=== PATIENT | female | born 1950 | race American Indian/Alaskan Native ===

== ENCOUNTER 2016-08-09 17:41 | Emergency (ER) | payer MEDICARE ==
[2016-08-09 18:11] LABS: Hemoglobin 12.3 gm/dl (10.1-14.3); Mean Corpuscular HGB Conc 32 % (30-34); Mean Corpuscular Volume 71 fl (79-97); Platelet Count 243 K/mm3 (140-440); Red Blood Count 5.53 M/mm3 (3.65-5.03); Red Cell Distribution Width 16.2 % (13.2-15.2)
[2016-08-09 18:20] LABS: Mean Corpuscular Hemoglobin 22 pg (28-32)
[2016-08-09 18:32] LABS: BUN/Creatinine Ratio 11.81; Calcium 9.6 mg/dL (8.4-10.2); Chloride 96.6 mmol/L (98-107); Potassium 4.1 mmol/L (3.6-5.0)
[2016-08-09 19:50] LABS: Bilirubin,Urine NEG (Negative); Blood,Urine NEG (Negative); Ketones,Urine NEG (Negative); Leukocyte Esterase,Urine LG (Negative); Mucus,Urine FEW /HPF; Nitrite,Urine POS (Negative); Urobilinogen,Urine < 2.0 mg/dL (<2.0)
--- NOTE | 2016-08-09 20:15 | Emergency Department Report ---
HPI - General Chief Complaint: Upper Respiratory Infection Time Seen by Provider: 08/09/16 20:00 - HPI HPI: Patient is a 66-year-old female with a history of seasonal allergies and hypertension on medication presents to ED complaining of right ear pain and yellow sputum productive cough for the past week. Patient states her cough started Off as dry and nonproductive and as pursued progressively gotten to produce take yellow mucus. Patient also states 2 days ago right ear pain and decreased hearing. She denies fevers/chills/nausea/septum pain/chest pain/dizziness or blurred vision. 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 - Social History Smoking Status: Former Smoker Substance Use Type: Alcohol - Medications Home Medications: Home Medications Medication Instructions Recorded Confirmed Last Taken Type ALBUTEROL Inhaler [ProAir HFA 2 puff IH QID PRN #1 pump 08/09/16 Unknown Rx Inhaler] Azithromycin [Zithromax TAB] 500 mg PO DAILY #4 tablet 08/09/16 Unknown Rx Carbamide Peroxide 6.5% [Ear Wax 1 - 2 drops OT DAILY #1 bottle 08/09/16 Unknown Rx Drops] Hydrochlorothiazide [HCTZ] 10 mg PO DAILY 08/09/16 08/09/16 08/09/16 History Lisinopril [Zestril TAB] 10 mg PO QDAY 08/09/16 08/09/16 08/09/16 History guaiFENesin/CODEINE [Robitussin AC] 5 ml PO TID #60 ml 08/09/16 Unknown Rx ED Review of Systems ROS: Stated complaint: COUGHING Other details as noted in HPI Constitutional: denies: chills, fever Eyes: denies: eye pain, eye discharge, vision change ENT: ear pain. denies: throat pain, dental pain, hearing loss, epistaxis, congestion Respiratory: cough. denies: shortness of breath, wheezing Cardiovascular: denies: chest pain, palpitations Endocrine: no symptoms reported Gastrointestinal: denies: abdominal pain, nausea, vomiting, diarrhea, constipation Genitourinary: denies: urgency, dysuria, frequency, discharge Musculoskeletal: denies: back pain, joint swelling, arthralgia Skin: denies: rash, lesions Neurological: denies: headache, weakness, paresthesias Psychiatric: denies: anxiety, depression Hematological/Lymphatic: denies: easy bleeding, easy bruising Physical Exam - Physical Exam Vital Signs: Vital Signs 08/09/16 17:57 Temperature 98.4 F Pulse Rate 78 Respiratory 18 Rate Blood Pressure 154/82 O2 Sat by Pulse 100 Oximetry Physical Exam: GENERAL: Alert and oriented x3, no apparent distress, Normal Gait, atraumatic. HEAD: Head is normocephalic and a-traumatic. EYES: Extra ocular muscles are intact. Pupils are equal, round, and reactive to light and accommodation. EARS: symetrical, atraumatic, non tender mastoid and tragus, R ear canal filled with brown thick cerumen, tympanic membrance not visualized. gross auditory nml bilaterally. NOSE: Nose symetrical, Nontender,Nares appeared normal. MOUTH:Mouth is well hydrated and without lesions. Tonsils nonerythematous or swollen, Uvula midline, Tongue not elevated. Mucous membranes are moist. Posterior pharynx clear, no exudate or lesions. Patent airways NECK: Supple. Non edematous, No carotid bruits. No lymphadenopathy or thyromegaly. LUNGS: Symetrical with respiration, No wheezing, no rales or crackles, CTAB. HEART: S1, S2 present, regular rate and rhythm without murmur, no rubs, no gallops. EXTREMITIES/MUSCULOSKELETAL: No cyanosis, clubbing, rash, lesions or edema. Full ROM bilaterally. UE/LE Pulses 2+ bilaterally. NEUROLOGIC: The patient is cooperative with no focal neurologic deficits. SKIN: Warm and dry, No lesions, No ulceration or induration present. ED Course Vital Signs 08/09/16 17:57 Temperature 98.4 F Pulse Rate 78 Respiratory 18 Rate Blood Pressure 154/82 O2 Sat by Pulse 100 Oximetry ED Medical Decision Making - Lab Data Result diagrams: 08/09/16 18:04 08/09/16 18:04 - Medical Decision Making 66-year-old female presents with cerumen impaction of the right ear upper respiratory infection ED course: Patient's right ear was irrigated examination after irrigation: Nml, TM visualized Severe wax was removed from right ear with 100 mL of ns She tolerated procedure well. Patient states her ear feels much better. Chest x-ray, CBC, BMP, urinalysis were ordered. All were normal. Chest x-ray shows no cardiopulmonary abnormalities. Discussed all findings the patient. Vital signs are normal patient is in no acute or respiratory distress. Discussed the patient to follow up with primary care physician. Discussed the patient take medication as prescribed. She verbally states she understands instructions given follow-up Critical care attestation.: If time is entered above; I have spent that time in minutes in the direct care of this critically ill patient, excluding procedure time. ED Disposition Clinical Impression: Impacted cerumen of right ear, URI with cough and congestion Disposition: DISCHARGED TO HOME OR SELFCARE Is pt being admited?: No Does the pt Need Aspirin: No Condition: Stable Instructions: Cerumen Impaction (ED), Upper Respiratory Infection (ED), Acute Bronchitis (ED) Prescriptions: ALBUTEROL Inhaler [ProAir HFA Inhaler] 2 puff IH QID PRN #1 pump PRN Reason: Shortness Of Breath Azithromycin [Zithromax TAB] 500 mg PO DAILY #4 tablet Carbamide Peroxide 6.5% [Ear Wax Drops] 1 - 2 drops OT DAILY #1 bottle guaiFENesin/CODEINE [Robitussin AC] 5 ml PO TID #60 ml Referrals: AUDELIA OWENS MD [Primary Care Provider] - 3-5 Days [facility] [Outside] - 3-5 Days [facility] [Outside] - 3-5 Days [facility] [Outside] - 3-5 Days Forms: Work/School Release Form(ED) Time of Disposition: 21:53
[2016-08-09] MEDS ORDERED: HYDROGEN PEROXIDE TP ONE (20:23)
[2016-08-09] MEDS ORDERED: LIDOCAINE VISCOUS 2% PO ONE (20:23)
[2016-08-09] MEDS ORDERED: NACL 0.9% 500 ML IR ONE (21:00)
[2016-08-09] MEDS ORDERED: NACL 0.9% IR ONE (21:03)
[2016-08-09] MEDS ORDERED: ZITHROMAX PO ONE (21:48)
[2016-08-09] MEDS ORDERED: DELTASONE PO ONE (21:48)
[2016-08-09 22:38] VITALS: BP 147/110
--- NOTE | 2016-08-09 22:41 | XRay Report ---
FINAL REPORT PROCEDURE: XR CHEST ROUTINE 2V TECHNIQUE: PA and lateral chest radiographs were obtained. CPT 68564 HISTORY: persistant cough/fever COMPARISON: No prior studies are available for comparison. FINDINGS: Heart: Normal. Mediastinum/Vessels: Aorta is tortuous. Lungs/Pleural space: Left lower lung atelectasis. Bony thorax: No acute osseous abnormality. Other: IMPRESSION: Left lower lung atelectasis..
== END 2016-08-09 22:17 | disposition home or self-care (01) ==
LOC: ED 17:41
DX: H61.21 Impacted cerumen, right ear (principal); R05 Cough; R09.81 Nasal congestion; J06.9 Acute upper respiratory infection, unspecified
CPT/HCPCS: 36415; 69209; 71020; 80048; 81001; 85027; 99284; J7512

== ENCOUNTER 2017-01-18 09:07 | Emergency (ER) | payer MEDICARE ==
[2017-01-18 09:24] VITALS: BP 119/97
[2017-01-18] MEDS ORDERED: DECADRON IM ONE (09:50)
--- NOTE | 2017-01-18 09:55 | Emergency Department Report ---
ED Rash HPI - HPI Chief Complaint: Skin Rash Stated Complaint: RASH Time Seen by Provider: 01/18/17 09:42 Duration: 3 Days Location: Upper Extremities Suspected Cause: Insect Rash Symptoms: Yes Itching, No Facial Swelling, No Tongue/Oral Swelling, No Breathing Difficulties, No Choking Sensation, No Wheezing/Dyspnea, No Peeling, No Blistering, No Fever, No Lightheaded, No Malaise, No Myalgias Severity: mild ED Review of Systems ROS: Stated complaint: RASH Other details as noted in HPI Comment: Unobtainable due to pts medical conditions Constitutional: no symptoms reported, see HPI. denies: chills Eyes: as per HPI. denies: eye pain ENT: as per HPI. denies: ear pain, throat pain Respiratory: no symptoms reported, see HPI. denies: cough, orthopnea Cardiovascular: as per HPI. denies: chest pain, palpitations, dyspnea on exertion, orthopnea Endocrine: no symptoms reported, see HPI. denies: excessive sweating, flushing Gastrointestinal: as per HPI. denies: abdominal pain, nausea, vomiting Genitourinary: as per HPI. denies: urgency, dysuria Musculoskeletal: as per HPI. denies: back pain Skin: as per HPI, rash Neurological: as per HPI. denies: headache, weakness Psychiatric: as per HPI. denies: anxiety, depression Hematological/Lymphatic: as per HPI. 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 No distress. Alert and acting appropriately. HEENT: No Periorbital Edema, No Conjuctival Injection, No Chemosis, No Perioral Edema, No Tongue Edema, No Uvular Edema, No Compromised Airway, No Drooling Lungs: Yes Good Air Exchange, No Wheezes, No Ronchi, No Stridor, No Cough, No Labored Respirations, No Retractions, No Use of Accessory Muscles, No Other Abnormal Lung Sounds Heart: Yes Regular, No Murmur Skin: Yes Urticarial Rash, Yes Erythema, No Maculopapular Rash, No Morbilliform rash, No Bulla(e), No Excoriations, No Weeping, No Tenderness, No Edema, No Encrustations Other: Positive: Abdomen Normal, Neurologic Normal, Musculoskeletal Normal ED Course Vital Signs 01/18/17 09:22 Temperature 98.6 F Pulse Rate 79 Respiratory 16 Rate Blood Pressure 119/97 O2 Sat by Pulse 100 Oximetry - Reevaluation(s) Reevaluation #1: 01/18/17 TO ER W RAC INSECT BITES APPEAR TO BE MOSQUIOTOS RASH CAME UP AFTER WORKING IN THE [employer] Y[employer] FEW BITES ON RIGHT SIDE NO FEVER NO SOB ABC N NAD ALSO ASKING FOR RX REFILL FOR ALBUTEROL VSS DC HOME W DC POC BP 140/80 ON DC ED Medical Decision Making - Medical Decision Making see note - Differential Diagnosis insect bite Critical care attestation.: If time is entered above; I have spent that time in minutes in the direct care of this critically ill patient, excluding procedure time. ED Disposition Clinical Impression: Rash, Asthma, Insect bite Disposition: DC-01 TO HOME OR SELFCARE Is pt being admited?: No Does the pt Need Aspirin: No Condition: Stable Instructions: Asthma (ED), Insect Bite or Sting (ED) Additional Instructions: over the counter benadryl will help with the itching follow up pcp for flu shot Prescriptions: ALBUTEROL Inhaler [Proair] 2 puff IH QID PRN #1 applicator PRN Reason: Shortness Of Breath methylPREDNISolone [Medrol] 4 mg PO DAILY #1 tab.ds.pk Referrals: PRIMARY CARE, [Primary Care Provider] - 3-5 Days SIDRA FISCHER MD [Staff Physician] - 3-5 Days Time of Disposition: 09:52
== END 2017-01-18 10:04 | disposition home or self-care (01) ==
LOC: ED 09:07
DX: S50.369A Insect bite (nonvenomous) of unspecified elbow, initial encounter (principal); R21 Rash and other nonspecific skin eruption; J45.909 Unspecified asthma, uncomplicated; I10 Essential (primary) hypertension; Z90.710 Acquired absence of both cervix and uterus; W57.XXXA Bitten or stung by nonvenomous insect and other nonvenomous arthropods, initial encounter; Y93.89 Activity, other specified; Y99.8 Other external cause status; Y92.89 Other specified places as the place of occurrence of the external cause
CPT/HCPCS: 96372; 99282; J1100